=== PATIENT | male | born 1945 | race Caucasian/White ===

== ENCOUNTER 2018-03-28 13:22 | Day surgery (SDC) | payer MEDICARE, BC ==
[2018-03-26 09:37] VITALS: BMI 27.2
[~2018-03-28 13:22] MED LIST: DEXAMETHASONE SOD PHOSPHATE 10 MG/ML 1 ML VIAL IV ONE; DEXAMETHASONE SOD PHOSPHATE 4 MG/ML 1 ML VIAL IV ONE; FAMOTIDINE 20 MG/2 ML VIAL IV ONE; LACTATED RINGERS 1,000 ML IV SCH; LIDOCAINE 1% 20 ML VIAL (10MG/ML) FOR IV START INTRADERMA PRN; MELOXICAM 7.5 MG TAB PO ONE; MORPHINE SULFATE 4 MG/ML SYRINGE IV PRN; ONDANSETRON 4 MG/2 ML VIAL IVP ONE; ceFAZolin IN SWFI 2 GM/20 ML SYRINGE IVP ONE
[2018-03-28] MEDS ORDERED: MIDAZOLAM 2 MG/2 ML VIAL ONE (15:38)
[2018-03-28] MEDS ORDERED: fentaNYL (PF) 50 MCG/ML 2 ML AMP ONE (15:38)
[2018-03-28] MEDS ORDERED: ePHEDrine SULFATE/0.9% NACL/PF 50 MG/5 ML SYRINGE IV ONE (15:38)
[2018-03-28] MEDS ORDERED: LIDOCAINE 1% INJ 10MG/ML (20 ML MDV) ONE (15:38)
[2018-03-28] MEDS ORDERED: PHENYLEPHRINE-0.9% NACL SYG 1 MG/10 ML SYRINGE ONE (15:38)
[2018-03-28] MEDS ORDERED: SUCCINYLCHOLINE CHLORIDE 100 MG/5 ML SYR IV ONE (15:38)
[2018-03-28] MEDS ORDERED: PROPOFOL 10 MG/ML 20 ML VIAL IV ONE (15:38)
[2018-03-28 16:56] VITALS: TEMP 96.8
--- NOTE | 2018-03-28 17:01 | P.OP ---
Date of Procedure: 03/28/18 Preoperative Diagnosis: 1.6 cm right forehead mass Postoperative Diagnosis: same Procedure(s) Performed: Excision of a 1.6 cm right forehead mass with complex closure with a secondary defect 3.6x1.5 cm and the use of a facial nerve stimulator for preservation of the facial nerve. Anesthesia: HORTENSIAA Surgeon: Tree Galvan Estimated Blood Loss (ml): 2 Pathology: other (left forehead mass) Condition: stable Disposition: PACU Indications for Procedure: This patient developed a mass of the left forehead. This bothersome to him and he elected to have this removed. All risks, benefits, and alternative therapies were discussed. Consent was obtained and all questions were answered. Risks of bleeding, infection, facial paralysis etc. etc. were explained. Consent was obtained and all questions were answered. Operative Findings: 1.6 cm left forehead mass Description of Procedure: Patient was taken to the operative room and placed in the supine position. A general inhalation anesthetic was administered to the patient by mask and subsequently intubated with a cuffed endotracheal tube by the department of anesthesia with a functioning IV line in place. Patient was monitored throughout the entire case by the department of anesthesia. An draped in usual fashion and a horizontal incision was made overlying this mass. Dissection was carried down through the frontalis muscle to this mass utilizing a facial nerve stimulator to prevent any damage to a cranial nerve. Branches of the facial nerve were identified. Dissected away from the mass and the mass was removed which measured 1.6 cm. We then closed this in a complex fashion after extensive undermining in all directions. We removed redundant tissue along the edges and did extensive undermining. The secondary defect measured 3.6 x 1.5 cm. We closed the frontalis muscle with a 4-0 Monocryl the deep dermal layer with 4-0 Monocryl the dermal layer with 4-0 Monocryl and the skin with a 5-0 Prolene. Compression dressing and Steri-Strips were applied. The patient tolerated this well and follow-up will be in the office in 1 week.
[2018-03-28 17:04] VITALS: RESP 16
[2018-03-28] MEDS ORDERED: HYDROmorphone 0.5 MG/0.5 ML SYRINGE IVP ONE ×2 (17:21→17:30)
[2018-03-28] MEDS ORDERED: HYDROcodone/APAP 5-325MG 1 EACH TAB PO ONE (17:50)
[2018-03-28 18:15] VITALS: BP 165/66; PULSE 100
== END 2018-03-28 18:33 | disposition home or self-care (01) ==
LOC: OR 13:22
PROVIDERS: ATTEND Otolaryngology
DX: L92.3 Foreign body granuloma of the skin and subcutaneous tissue (principal); Z18.33 Retained wood fragments; W45.8XXA Other foreign body or object entering through skin, initial encounter; I10 Essential (primary) hypertension; M19.90 Unspecified osteoarthritis, unspecified site; F32.9 Major depressive disorder, single episode, unspecified; L30.9 Dermatitis, unspecified; K21.9 Gastro-esophageal reflux disease without esophagitis; H91.90 Unspecified hearing loss, unspecified ear; E78.00 Pure hypercholesterolemia, unspecified; G40.909 Epilepsy, unspecified, not intractable, without status epilepticus; J32.9 Chronic sinusitis, unspecified; G47.33 Obstructive sleep apnea (adult) (pediatric); Z99.89 Dependence on other enabling machines and devices; Z79.1 Long term (current) use of non-steroidal anti-inflammatories (NSAID); Z79.891 Long term (current) use of opiate analgesic; Z79.899 Other long term (current) drug therapy; Z88.1 Allergy status to other antibiotic agents; J30.89 Other allergic rhinitis; J30.1 Allergic rhinitis due to pollen; Z91.018 Allergy to other foods; Z91.09 Other allergy status, other than to drugs and biological substances; Z87.891 Personal history of nicotine dependence
CPT/HCPCS: 88304; 88311; 11442; 13132; J2250; J1100; J2405; J2001; J3010; J2370; J0330; J2704; J1170; J0690

== ENCOUNTER → 2019-11-15 | Outpatient (CLI) | payer MEDICARE ==
--- NOTE | 2019-11-15 10:13 | MR ---
EXAMINATION TYPE: MR shoulder RT wo con DATE OF EXAM: 11/15/2019 COMPARISON: Outside radiographs 08/14/2019 HISTORY: 74-year-old male RIGHT SHOULDER PAIN TECHNIQUE: Multiplanar, multisequence imaging of the right shoulder is performed without contrast. FINDINGS: Long head biceps tendon appears intact and appropriately situated along the bicipital. Heterogeneity of the subscapularis tendon. There is partial tear of the inferior fibers and intrasubs tance change within the remainder of the insertion. Minimal majority of the tendon remains intact. Some attenuation of the distal clavicle, probable postsurgical partial resection. The distal clavicle mildly indents the myotendinous junction of the supraspinatus. Trace fluid within the subacromial/subdeltoid bursa. Diffuse heterogeneity of both supraspinatus and infraspinatus tendons with suture anchors from prior supraspinatus and infraspinatus tendon repairs. The anterior to mid supraspinatus tendon is attenuated with suggestion of a small articular sided tea r of the mid tendon fibers measuring 9 x 7 mm. Additional partial tear of the infraspinatus tendon measuring 10 x 8 mm. Extensive intrasubstance change Is present. No full-thickness or retracted tear is identified. Minimal fatty streaks throughout the rotator cuff musculature. There is linear signal extending into the substance of the superior labrum back to the inferior aspec t of the posterior labrum where a millimeter. Labral cyst is present. Glenohumeral joint is intact with mild diffuse cartilage thinning. No significant joint effusion. No Hill-Sachs deformity or os acromiale. Patchy red marrow is present and can be seen in setting of anemia, obesity, smoking, and chronic dise ase. IMPRESSION: 1. Prior supraspinatus and infraspinatus tendon repairs. There is extensive heterogeneity of the cuff suggesting a combination of tendinosis and postsurgical change. 2. Small articular sided tear measuring 9 x 7 mm along the mid supraspinatus tendon and partial tear of the infraspinatus tendon measuring 10 x 8 mm. No retracted or full thickness tear identified. 3. Subscapularis tendinosis with partial tear of the inferior third fibers. The majority of the subsc apularis tendon remains intact. 4. Suspected prior partial distal clavicle resection. The distal clavicle mildly indents the superior surface of the supraspinatus tendon. This may contribute to some residual impingement symptoms. 5. SLAP tear extending from the superior labrum down to the inferior aspect of the posterior labrum.
== END | disposition home or self-care (01) ==
LOC: RADMRIMAIN 07:49
PROVIDERS: ATTEND Orthopaedic Surgery
DX: M75.111 Incomplete rotator cuff tear or rupture of right shoulder, not specified as traumatic (principal); S43.432A Superior glenoid labrum lesion of left shoulder, initial encounter

== ENCOUNTER → 2019-11-26 | Outpatient (CLI) | payer MEDICARE ==
[2019-11-26 14:14] LABS: Basophils # (A) 0.1 k/uL (0-0.2); Basophils % (A) 1 %; Eosinophils # (A) 0.6 k/uL (0-0.7); Eosinophils % (A) 8 %; HGB 14.2 gm/dL (13.0-17.5); Lymphocytes # (A) 1.8 k/uL (1.0-4.8); Lymphocytes % (A) 25 %; MCH 31.1 pg (25.0-35.0); MCHC 32.2 g/dL (31.0-37.0); MCV 96.7 fL (80.0-100.0); Mean Platelet Volume 7.6; Monocytes # (A) 0.4 k/uL (0-1.0); Monocytes % (A) 5 %; Neutrophils # (A) 4.3 k/uL (1.3-7.7); Neutrophils % (A) 59 %; Platelet Count 223 k/uL (150-450); RBC 4.55 m/uL (4.30-5.90); RDW 13.1 % (11.5-15.5); WBC 7.2 k/uL (3.8-10.6)
[2019-11-26 14:22] LABS: Potassium 4.2 mmol/L (3.5-5.1)
== END | disposition home or self-care (01) ==
LOC: LABPAT 13:13
PROVIDERS: ATTEND Orthopaedic Surgery
DX: Z01.818 Encounter for other preprocedural examination (principal); Z01.812 Encounter for preprocedural laboratory examination; M75.41 Impingement syndrome of right shoulder
CPT/HCPCS: 36415; 80051; 85025; 93005

== ENCOUNTER 2019-12-05 06:25 | Day surgery (SDC) | payer MEDICARE ==
[2019-12-02 15:43] VITALS: BMI 29.0
--- NOTE | 2019-12-04 09:35 | HP ---
HISTORY AND PHYSICAL CHIEF COMPLAINT: Right shoulder pain. HISTORY OF PRESENT ILLNESS: The patient is a 74-year-old, right-hand dominant, retired gentleman who presents with progressive right shoulder pain for the past 6 months. He is having pain with overhead use and at night. He has tried medications, therapy, and injections without much relief. He notes the pain persists and limits him. PAST MEDICAL HISTORY: Significant for reflux disease and hypertension. PAST SURGICAL HISTORY: Significant for previous right and left rotator cuff repairs. CURRENT MEDICATIONS: 1. Amitriptyline. 2. Atorvastatin. 3. Klonopin. 4. Lexapro. 5. Lisinopril. 6. Omeprazole. 7. Trileptal. ALLERGIES: He denies drug allergies. FAMILY HISTORY: Significant for heart disease and cancer. SOCIAL HISTORY: Negative for current tobacco or alcohol use. REVIEW OF SYSTEMS: Sixteen-point review of systems otherwise reviewed and is noncontributory. PHYSICAL EXAMINATION: On examination, the patient is approximately 5 feet 6 inches, 178 pounds of mesomorphic habitus. HEENT: Exam is nonfocal. Neck is supple. On examination of the right shoulder, he is tender about the anterior subacromial space. He has moderate subacromial crepitus. Active range of motion forward elevation 140 degrees, external rotation with arm at side 50 degrees, internal rotation to L2. Motor strength is 5 minus over 5 for abduction and external rotation. Impingement test, Neer test are positive. His distal neurovascular exam appears intact in the right upper extremity. MRI report right shoulder from 11/15/2019 shows increased signal involving the supraspinatus with likely articular sided tear and partial tearing of the infraspinatus. There is also question of a superior labral tear. IMPRESSION: 1. Right shoulder impingement syndrome with recurrent rotator cuff tear. 2. Right shoulder possible superior labral tear. RECOMMENDATIONS: I talked to the patient at length regarding his condition and treatment options. At this point, he remains quite symptomatic despite conservative measures. After thorough discussion, he opts to proceed with surgery. We will plan to proceed with arthroscopic evaluation with possible revision rotator cuff repair in addition to possible biceps tenotomy. Risks and benefits were discussed at length in layman's terms. MMODL / IJN: [id number] /
[~2019-12-05 06:25] MED LIST changes: -DEXAMETHASONE SOD PHOSPHATE 4 MG/ML 1 ML VIAL IV ONE; -FAMOTIDINE 20 MG/2 ML VIAL IV ONE; +HYDROmorphone 0.5 MG/0.5 ML SYRINGE IVP PRN; +LIDOCAINE 1% (10MG/ML) FOR IV START INTRADERMA PRN; -LIDOCAINE 1% 20 ML VIAL (10MG/ML) FOR IV START INTRADERMA PRN; -MELOXICAM 7.5 MG TAB PO ONE; -MORPHINE SULFATE 4 MG/ML SYRINGE IV PRN; -ceFAZolin IN SWFI 2 GM/20 ML SYRINGE IVP ONE
[2019-12-05] MEDS ORDERED: MIDAZOLAM 2 MG/2 ML VIAL IVP ONE ×2 (07:19→07:22)
[2019-12-05] MEDS ORDERED: DEXAMETHASONE SOD PHOS (MDV) 100 MG/10 ML VIAL IVP ONE (07:30)
[2019-12-05] MEDS ORDERED: ONDANSETRON 4 MG/2 ML VIAL IVP ONE (07:30)
[2019-12-05 07:45] VITALS: RESP 16
[2019-12-05] MEDS ORDERED: LACTATED RINGERS 1,000 ML IV ONE ×2 (07:47→08:48)
[2019-12-05] MEDS ORDERED: LIDOCAINE 1% INJ 10MG/ML (20 ML MDV) ONE (07:54)
[2019-12-05] MEDS ORDERED: SUCCINYLCHOLINE CHLORIDE 100 MG/5 ML SYR IV ONE (07:54)
[2019-12-05] MEDS ORDERED: ROPIVACAINE 5 MG/ML 30 ML VIAL ONE (07:54)
[2019-12-05] MEDS ORDERED: PHENYLEPHRINE-0.9% NACL SYG 1 MG/10 ML SYRINGE ONE (07:54)
[2019-12-05] MEDS ORDERED: DEXAMETHASONE SOD PHOSPHATE 4 MG/ML 1 ML VIAL ONE (07:54)
[2019-12-05] MEDS ORDERED: ePHEDrine SULFATE/0.9% NACL/PF 50 MG/5 ML SYRINGE IV ONE (07:54)
[2019-12-05] MEDS ORDERED: PROPOFOL 10 MG/ML 20 ML VIAL IV ONE (07:54)
[2019-12-05] MEDS ORDERED: EPINEPHrine (PF) 1 ML in SODIUM CHLORIDE 0.9% IRRIGATIO 3,000 ML IRRIGATION ONE ×8 (08:34→08:35)
[2019-12-05 09:28] VITALS: TEMP 97.1
--- NOTE | 2019-12-05 09:40 | P.OP ---
Date of Procedure: 12/05/19 Preoperative Diagnosis: Symptomatic right rotator cuff re-tear Postoperative Diagnosis: 1 1/2 cm tear of the supraspinatus, high-grade partial-thickness tear intra- articular portion long head of biceps, anterior labral tear Procedure(s) Performed: Right shoulder arthroscopic subacromial decompression/revision, rotator cuff repair, biceps tenotomy, anterior labral debridement Implants: Arthrex 5.5 mm swivel lock anchor 2 Anesthesia: JESUS, regional Surgeon: Willie Smith Watch And Clock Repairer #1: Brown Linton Estimated Blood Loss (ml): 10 Pathology: none sent Condition: stable Disposition: PACU Indications for Procedure: The patient is a 74-year-old glnra-xpan-mbvalfqu retired male who presents with progressive right shoulder pain despite conservative measures. A discussion of the risks and benefits of operative intervention versus continued conservative measures was made with patient. He opted to proceed with surgery. Operative risks to include infection, neurovascular injury, development of blood clots, possible incomplete resolution of symptoms, possible worsening of symptoms and need for subsequent procedures was discussed. Informed consent was obtained. Operative Findings: As below Description of Procedure: The patient was brought to the operating room, and after induction of general anesthesia was placed in a beachchair position. A preoperative interscalene block was placed for postoperative analgesia. I examined the right shoulder. There was no gross block to passive motion or gross glenohumeral instability. The right upper extremity was prepped and draped in normal fashion. The bony outlines the acromion, distal clavicle, and coracoid process were outlined with a skin marker. The glenohumeral joint was inflated with 50 mL of saline utili zing a spinal needle from posterior approach. A posterior portal was made through a 5 mm skin incision 1 cm medial and inferior to the posterior lateral border time. A blunt trocar was used to easily into the joint. Diagnostic arthroscopy was performed. An anterior portal was made just lateral to the coracoid process entering the joint above the subscapularis tendon. The subscapularis tendon appeared to be intact. Anterior labrum was frayed and torn along its superior aspect. This was debrided back to a stable base with a motorized shaver. The inferior glenohumeral ligament appeared intact. The inferior recess was inspected. The posterior labrum was intact. There was a high-grade partial-thickness tear of the long head of the biceps involving interarticular portion. It was elected to proceed with release at this point. This was released from the superior labrum with electrocautery and was allowed to retract to the bicipital groove. On inspection the rotator cuff, a full- thickness tear involving the anterior aspect the supraspinatus was noted. This was debrided with a motorized shaver. The posterior portion of the cuff appeared intact. A lateral portal was made 2 centimeters inferior to the anterior lateral border of the acromion. The rotator cuff tear was easily mobilized back to the greater tuberosity there was significant subacromial bursal thickening that was debrided with a motorized shaver. The soft tissue on the undersurface of the acromion was debrided with a motorized shaver and electrocautery clearly defining the anterior medial and lateral borders as well as the distal clavicle. A revision anterior inferior acromioplasty was performed with a motorized paradise starting anterolateral, then extending this posteriorly, then extending this medially. I converted to a flat acromion and this was verified in the posterior and lateral viewing portals. The greater tuberosity was lightly decorticating with a shaver down to a bleeding bony surface. An accessory superior lateral portal was made just off the lateral edge of the acromion for anchor placement. One anchor was then placed just off the articular surface with the appropriate starting awl. 5.5 mm anchors preloaded with #2 fiber tape were placed. Good purchase was obtained. These fiber tapes were then passed the rotator cuff with a scorpion suture passer. A fiber link was placed into the central portion of the tear. A 5.5 mm swivel lock anchor was placed laterally. Good purchase was obtained. Final arthroscopic view showed adequate compression at the footprint. The arthroscope was then removed. The portals were closed with simple 3-0 nylon sutures. A sterile dressing was applied in addition to a sling. The patient was then awoken from general anesthesia and transferred to recovery room in good condition. Blood loss was estimated at 10 mL. No complications were incurred. Sponge and needle counts were correct in the case. Yash AMIN assisted and the major components of the case to include arm positioning, anchor placement, and rotator cuff repair.
[2019-12-05 10:51] VITALS: BP 136/74; PULSE 99
--- NOTE | 2019-12-06 16:00 | P.ANPRN ---
Procedure Note - Anesthesia - Nerve Block Performed Right Interscalene Single Time Out Performed: Yes Date of Procedure: 12/06/19 Procedure Start Time: : Procedure Stop Time: : Location of Patient: PreOp Indication: Acute Post-Operative Pain, Requested by Surgeon Sedation Type: Sedate with meaningful contact maintained Preparation: Sterile Prep Position: Supine Needle Types: Pajunk Needle Gauge: 21 Ultrasound used to visualize needle placement: Yes Ultrasound used to observe medication spread: Yes Blood Aspirated: No Pain Paresthesia on Injection Noted: No Resistance on Injection: Normal Image Stored and Saved: Yes Events: Uneventful and Well Tolerated (Ropivacaine 0.5% 30 mL plus dexamethasone 4 mg)
== END 2019-12-05 11:10 | disposition home or self-care (01) ==
LOC: OR 06:25
PROVIDERS: ATTEND Orthopaedic Surgery
DX: M75.121 Complete rotator cuff tear or rupture of right shoulder, not specified as traumatic (principal); M75.41 Impingement syndrome of right shoulder; M24.111 Other articular cartilage disorders, right shoulder; M75.21 Bicipital tendinitis, right shoulder; I10 Essential (primary) hypertension; K21.9 Gastro-esophageal reflux disease without esophagitis; Z79.899 Other long term (current) drug therapy; E78.5 Hyperlipidemia, unspecified; G47.33 Obstructive sleep apnea (adult) (pediatric); F32.9 Major depressive disorder, single episode, unspecified; Z98.890 Other specified postprocedural states; Z82.49 Family history of ischemic heart disease and other diseases of the circulatory system
CPT/HCPCS: 29827; 29826; 64415; 76942; C1713 ×2; C1894; J2250; J1100 ×2; J0690; J2405; J0171; J2001; J2795; J2370; J0330; J2704; 64448

== ENCOUNTER → 2020-08-13 | Outpatient (CLI) | payer MEDICARE ==
[2020-08-13 11:16] LABS: Potassium 4.5 mmol/L (3.5-5.1)
[2020-08-13 11:17] LABS: Basophils % (A) 0 %; Eosinophils # (A) 0.8 k/uL (0-0.7); Eosinophils % (A) 12 %; HCT 43.6 % (39.0-53.0); HGB 13.6 gm/dL (13.0-17.5); Lymphocytes # (A) 2.1 k/uL (1.0-4.8); Lymphocytes % (A) 31 %; MCH 29.6 pg (25.0-35.0); MCHC 31.3 g/dL (31.0-37.0); MCV 94.5 fL (80.0-100.0); Mean Platelet Volume 6.9; Monocytes # (A) 0.4 k/uL (0-1.0); Monocytes % (A) 6 %; Neutrophils # (A) 3.3 k/uL (1.3-7.7); Neutrophils % (A) 49 %; Platelet Count 239 k/uL (150-450); RBC 4.61 m/uL (4.30-5.90); WBC 6.8 k/uL (3.8-10.6)
== END | disposition home or self-care (01) ==
LOC: LABPAT 09:32
PROVIDERS: ATTEND Orthopaedic Surgery
DX: Z01.818 Encounter for other preprocedural examination (principal); M65.342 Trigger finger, left ring finger
CPT/HCPCS: 80051; 85025

== ENCOUNTER → 2020-08-20 | Day surgery (SDC) | payer MEDICARE ==
--- NOTE | 2020-08-19 09:57 | HP ---
HISTORY AND PHYSICAL CHIEF COMPLAINT: Left ring finger pain/locking. HISTORY OF PRESENT ILLNESS: Patient is a 74-year-old, right-hand dominant, retired gentleman who presents with left ring finger triggering and pain for the past couple of weeks. It is worse in the morning. He notes it has progressed. He has a history of multiple other trigger fingers treated surgically. PAST MEDICAL HISTORY: Significant for reflux disease and hypertension. PAST SURGICAL HISTORY: Significant for foot surgery, bilateral shoulder surgery, multiple previous trigger finger release, and abdominoplasty. CURRENT MEDICATIONS: Amitriptyline, atorvastatin, Klonopin, Lexapro, lisinopril, melatonin, omeprazole, and Trileptal. He denies drug allergies. FAMILY HISTORY: Significant for cancer and heart disease. SOCIAL HISTORY: Significant for social alcohol use. 16 POINT REVIEW OF SYSTEMS: Otherwise reviewed and is noncontributory. PHYSICAL EXAMINATION: On examination, the patient is approximately 5 foot 6, 178 pounds of mesomorphic habitus. HEENT exam is nonfocal. Neck is supple. He is nontender about the left shoulder, elbow, and wrist. On examination of his left hand, he is tender over the A1 artem of the ring finger. He has palpable triggering. His distal neurovascular appears intact. IMPRESSION: Symptomatic right ring trigger finger. RECOMMENDATIONS: I talked to the patient at length regarding his condition and treatment options. After a thorough discussion, he opts to proceed with surgery. We will plan to proceed with left ring trigger finger release. We will likely perform that utilizing local anesthetic and IV sedation. Risks and benefits were discussed at length in layman's terms. MMODL / IJN: [id number] /
[~2020-08-20] MED LIST changes: +BUPIVACAINE (PF) 0.25% 30 ML VIAL SQ ONE; +MIDAZOLAM 2 MG/2 ML VIAL ONE; +PROPOFOL 10 MG/ML 20 ML VIAL IV ONE; +fentaNYL (PF) 50 MCG/ML 2 ML AMP ONE
[2020-08-20 07:21] VITALS: RESP 16; TEMP 97.6
--- NOTE | 2020-08-20 08:26 | P.OP ---
Date of Procedure: 08/20/20 Preoperative Diagnosis: Symptomatic left ring trigger finger Postoperative Diagnosis: Same Procedure(s) Performed: Left trigger finger release Anesthesia: MAC, local Surgeon: Willie Smith Estimated Blood Loss (ml): 1 Pathology: none sent Condition: stable Disposition: PACU Indications for Procedure: The patient's a 74-year-old male presents with progressive left ring finger pain and locking. A discussion of the risks and benefits of operative intervention versus conservative measures was made with patient. He opted to proceed with surgery. Operative risks to include infection, neurovascular injury, development of blood clots, possible recurrence of symptoms and need for subsequent procedures was discussed. Informed consent was obtained. Operative Findings: As below Description of Procedure: The patient was brought to the operating room, and after induction of IV sedation left upper extremity was prepped and draped in normal fashion. The proposed incision site was then made just distal to the distal volar crease of the left hand over the ring finger. I planned on a 1/2 cm incision. 8 mL of quarter percent plain Marcaine was injected. The tourniquet was inflated to 250 mmHg. The skin incision was then made. Skin was incised sharply. Subcu tissues were divided blood. Neurovascular bundles were gently retracted. The A1 artem was identified along the flexor tendon. This was then transected unde r direct visualization proximal and distally. There was nodularity of the flexor tendon itself. There appeared to be good excursion. The wound was irrigated normal saline. The skin closure box and simple 4-0 nylon sutures. A sterile dressing was applied. The tourniquet was deflated less than 15 minutes total tourniquet time. The patient was awoken from sedation and transferred to recovery room in good condition. Blood loss less than 1 mL. No complications were incurred. Sponge and needle counts were correct at the end the case.
[2020-08-20 08:55] VITALS: BP 120/66; PULSE 78
--- NOTE | 2020-08-24 13:10 | CDI ---
Outpatient Documentation Clarification Form Date: 08/24/20 CDS/Supervisor Ovens Name: Stephanie Esposito Phone: If any questions, call Lazara Kulkarni Vice President Investor Relations at [phone] Patient Name: Indra Koehler Admit Date: 08/20/20 Discharge Date: 08/20/20 ATTENTION: The [facility] Coding Staff appreciate your assistance in clarifying documentation. Please respond to the clarification below the line at the bottom and electronically sign. The [facility] Coding staff will review the response and follow-up if needed. Please note: Queries are made part of the Legal Health Record. If you have any questions, please contact the Vice President Investor Relations. Dear Dr. Smith Please provide clarification for the laterality of the procedure performed. All documentation specifies left trigger finger. On the H&P under impression it is specified right trigger finger. Please clarify It was a left ring trigger finger release. Thank you for your kind consideration. MTDD
== END | disposition home or self-care (01) ==
LOC: OR 06:58
PROVIDERS: ATTEND Orthopaedic Surgery
DX: M65.342 Trigger finger, left ring finger (principal); K21.9 Gastro-esophageal reflux disease without esophagitis; I10 Essential (primary) hypertension; E78.5 Hyperlipidemia, unspecified; G47.33 Obstructive sleep apnea (adult) (pediatric); Z99.89 Dependence on other enabling machines and devices; G40.909 Epilepsy, unspecified, not intractable, without status epilepticus; Z98.890 Other specified postprocedural states; Z80.9 Family history of malignant neoplasm, unspecified; Z82.49 Family history of ischemic heart disease and other diseases of the circulatory system; Z97.2 Presence of dental prosthetic device (complete) (partial); Z79.899 Other long term (current) drug therapy
CPT/HCPCS: 26055; J2250; J1100; J0690; J2405; J3010; J2704

== ENCOUNTER 2021-01-03 14:45 | Emergency (ER) | payer MEDICARE ==
[2021-01-03 14:57] VITALS: RESP 16
[2021-01-03 15:20] VITALS: TEMP 98
[2021-01-03] MEDS ORDERED: SODIUM CHLORIDE 0.9% 1,000 ML IV STA (15:27)
--- NOTE | 2021-01-03 15:30 | ED ---
General Adult HPI - General Chief complaint: Syncope Stated complaint: Syncope Time Seen by Provider: 01/03/21 15:14 Source: patient, EMS, RN notes reviewed Mode of arrival: EMS Limitations: no limitations - History of Present Illness Initial comments: Patient is a pleasant 75-year-old male presenting to the emergency department following syncopal versus near syncopal event. Patient does not believe she fully passed out. Patient states he was going to have a tooth extracted. Patient states he did receive an injection. Following this patient started pulling on the area and there was significant discomfort. The episode occurred. Patient states he feels fine at this time. Patient was nauseated earlier. No chest pain or dyspnea. No leg pain or leg swelling. No confusion. No isolated area of weakness. - Related Data Home Medications Medication Instructions Recorded Confirmed Atorvastatin [Lipitor] 80 mg PO HS 08/03/16 01/03/21 Escitalopram [Lexapro] 20 mg PO DAILY 08/03/16 01/03/21 Amitriptyline HCl [Elavil] 25 mg PO HS 09/07/17 01/03/21 Lisinopril [Prinivil] 10 mg PO DAILY 09/07/17 01/03/21 Omeprazole [PriLOSEC] 20 mg PO DAILY 09/07/17 01/03/21 clonazePAM [KlonoPIN] 1 mg PO BID 09/07/17 01/03/21 Diphenoxylate HCl/Atropine 1 tab PO BID 12/02/19 01/03/21 [Lomotil 2.5-0.025 mg Tablet] Melatonin 20 mg PO HS 12/02/19 01/03/21 OXcarbazepine [Trileptal] 300 mg PO BID 12/02/19 01/03/21 Cholecalciferol [Vitamin D3 (25 25 mcg PO DAILY 01/03/21 01/03/21 Mcg = 1000 Iu)] Allergies Allergy/AdvReac Type Severity Reaction Status Date / Time No Known Allergies Allergy Verified 01/03/21 16:46 Review of Systems ROS Statement: Those systems with pertinent positive or pertinent negative responses have been documented in the HPI. ROS Other: All systems not noted in ROS Statement are negative. Constitutional: Denies: fever Eyes: Denies: eye pain ENT: Denies: ear pain Respiratory: Denies: cough Cardiovascular: Denies: chest pain Endocrine: Denies: fatigue Gastrointestinal: Denies: abdominal pain Genitourinary: Denies: urgency Musculoskeletal: Denies: back pain Skin: Denies: rash Neurological: Denies: weakness Past Medical History Past Medical History: GERD/Reflux, Hearing Disorder / Deafness, Hyperlipidemia, Hypertension, Seizure Disorder, Sleep Apnea/CPAP/BIPAP Additional Past Medical History / Comment(s): Seizure disorder LAST 2013 History of Any Multi-Drug Resistant Organisms: None Reported Past Surgical History: Hernia Repair, Orthopedic Surgery Additional Past Surgical History / Comment(s): left and right shoulder surgery, 3 Inguinal hernia repairs, colonoscopy. LEFT MIDDLE FINGER, RIGHT RING FINGER Past Anesthesia/Blood Transfusion Reactions: No Reported Reaction Past Psychological History: Depression Smoking Status: Former smoker Past Alcohol Use History: Occasional Past Drug Use History: None Reported - Past Family History Mother Family Medical History: No Reported History Sister(s) Family Medical History: Cancer Additional Family Medical History / Comment(s): Stomach General Exam Limitations: no limitations General appearance: alert, in no apparent distress Head exam: Present: atraumatic, normocephalic Eye exam: Present: normal appearance, PERRL, EOMI ENT exam: Present: normal oropharynx Neck exam: Present: normal inspection Respiratory exam: Present: normal lung sounds bilaterally Cardiovascular Exam: Present: regular rate, normal rhythm, normal heart sounds Expanded Peripheral pulses: 2+: Radial (R), Radial (L), Posterior Tibialis (R), Posterior Tibialis (L) GI/Abdominal exam: Present: soft. Absent: distended, tenderness, pulsatile mass Extremities exam: Present: normal inspection. Absent: pedal edema, calf tenderness Neurological exam: Present: alert, oriented X3, CN II-XII intact. Absent: motor sensory deficit Expanded Neurological exam: Present: protecting the airway Patient oriented to: Present: person, place, time Speech: Present: fluid speech Cranial nerves: EOM's Intact: Normal Sensory exam: Upper Extremity Light Touch: Normal, Lower Extremity Light Touch: Normal Motor strength exam: RUE: 5, LUE: 5, RLE: 5, LLE: 5 Eye Response: (4) open spontaneously Motor Response: (6) obeys commands Verbal Response: (5) oriented Psychiatric exam: Present: normal affect, normal mood Skin exam: Present: normal color Course Vital Signs 01/03/21 14:55 Temperature 98.0 F Pulse Rate 70 Respiratory 16 Rate Blood Pressure 187/97 O2 Sat by Pulse 96 Oximetry EKG Findings - EKG Comments: EKG Findings:: Normal sinus rhythm at 70. HI 160. QRS 94. QT 406. QTc 4:30. Normal axis. Normal QRS. No acute ST change. Medical Decision Making - Medical Decision Making Patient has history consistent with vasovagal syncope. Patient evaluated and remained symptom-free. Patient comfort with discharge home. Patient does have history of seizure disorder however states he has not had one in for years and this does not feel typical to his previous seizures. - Lab Data Result diagrams: 01/03/21 15:33 01/03/21 15:33 Lab Results 01/03/21 01/03/21 01/03/21 Range/Units 15:33 15:33 15:33 WBC 9.5 (3.8-10.6) k/uL RBC 4.80 (4.30-5.90) m/uL Hgb 15.0 (13.0-17.5) gm/dL Hct 44.8 (39.0-53.0) % MCV 93.2 (80.0-100.0) fL MCH 31.2 (25.0-35.0) pg MCHC 33.4 (31.0-37.0) g/dL RDW 13.0 (11.5-15.5) % Plt Count 234 (150-450) k/uL MPV 7.4 Neutrophils % 71 % Lymphocytes % 19 % Monocytes % 5 % Eosinophils % 4 % Basophils % 0 % Neutrophils # 6.7 (1.3-7.7) k/uL Lymphocytes # 1.8 (1.0-4.8) k/uL Monocytes # 0.5 (0-1.0) k/uL Eosinophils # 0.4 (0-0.7) k/uL Basophils # 0.0 (0-0.2) k/uL PT 10.0 (9.0-12.0) sec INR 0.9 (<1.2) APTT 22.8 (22.0-30.0) sec D-Dimer 0.48 (<0.60) mg/L FEU Sodium 137 (137-145) mmol/L Potassium 4.8 (3.5-5.1) mmol/L Chloride 102 (98-107) mmol/L Carbon Dioxide 24 (22-30) mmol/L Anion Gap 11 mmol/L BUN 10 (9-20) mg/dL Creatinine 0.80 (0.66-1.25) mg/dL Est GFR (CKD-EPI)AfAm >90 (>60 ml/min/1.73 sqM) Est GFR (CKD-EPI)NonAf 89 (>60 ml/min/1.73 sqM) Glucose 121 H (74-99) mg/dL Calcium 9.1 (8.4-10.2) mg/dL Total Bilirubin 0.6 (0.2-1.3) mg/dL AST 31 (17-59) U/L ALT 22 (4-49) U/L Alkaline Phosphatase 122 (38-126) U/L Troponin I (0.000-0.034) ng/mL Total Protein 7.4 (6.3-8.2) g/dL Albumin 4.2 (3.5-5.0) g/dL 01/03/21 Range/Units 15:33 WBC (3.8-10.6) k/uL RBC (4.30-5.90) m/uL Hgb (13.0-17.5) gm/dL Hct (39.0-53.0) % MCV (80.0-100.0) fL MCH (25.0-35.0) pg MCHC (31.0-37.0) g/dL RDW (11.5-15.5) % Plt Count (150-450) k/uL MPV Neutrophils % % Lymphocytes % % Monocytes % % Eosinophils % % Basophils % % Neutrophils # (1.3-7.7) k/uL Lymphocytes # (1.0-4.8) k/uL Monocytes # (0-1.0) k/uL Eosinophils # (0-0.7) k/uL Basophils # (0-0.2) k/uL PT (9.0-12.0) sec INR (<1.2) APTT (22.0-30.0) sec D-Dimer (<0.60) mg/L FEU Sodium (137-145) mmol/L Potassium (3.5-5.1) mmol/L Chloride (98-107) mmol/L Carbon Dioxide (22-30) mmol/L Anion Gap mmol/L BUN (9-20) mg/dL Creatinine (0.66-1.25) mg/dL Est GFR (CKD-EPI)AfAm (>60 ml/min/1.73 sqM) Est GFR (CKD-EPI)NonAf (>60 ml/min/1.73 sqM) Glucose (74-99) mg/dL Calcium (8.4-10.2) mg/dL Total Bilirubin (0.2-1.3) mg/dL AST (17-59) U/L ALT (4-49) U/L Alkaline Phosphatase (38-126) U/L Troponin I <0.012 (0.000-0.034) ng/mL Total Protein (6.3-8.2) g/dL Albumin (3.5-5.0) g/dL - Radiology Data Radiology results: image reviewed (Chest x-ray shows no acute process) Disposition Clinical Impression: Vasovagal syncope Disposition: HOME SELF-CARE Condition: Stable Instructions (If sedation given, give patient instructions): Near Syncope (ED), Syncope (ED) Additional Instructions: Please do follow-up with your primary care physician in the next day or 2 for recheck. Return for chest pain or difficulty in breathing, weakness or confusion, passing out, worsening or change in symptoms or other concerns. Is patient prescribed a controlled substance at d/c from ED?: No Referrals: [facility],Clinic [Primary Care Provider] - 1-2 days Time of Disposition: 17:05
[2021-01-03] MEDS ORDERED: ACETAMINOPHEN TAB 500 MG TAB PO STA (15:35)
[2021-01-03 15:43] LABS: Basophils % (A) 0 %; Eosinophils # (A) 0.4 k/uL (0-0.7); Eosinophils % (A) 4 %; HCT 44.8 % (39.0-53.0); Lymphocytes # (A) 1.8 k/uL (1.0-4.8); Lymphocytes % (A) 19 %; MCH 31.2 pg (25.0-35.0); MCHC 33.4 g/dL (31.0-37.0); MCV 93.2 fL (80.0-100.0); Mean Platelet Volume 7.4; Monocytes # (A) 0.5 k/uL (0-1.0); Monocytes % (A) 5 %; Neutrophils # (A) 6.7 k/uL (1.3-7.7); Neutrophils % (A) 71 %; Platelet Count 234 k/uL (150-450); WBC 9.5 k/uL (3.8-10.6)
[2021-01-03 15:50] LABS: ALT 22 U/L (4-49); AST 31 U/L (17-59); African American GFR (CKD) >90 (>60 ml/min/1.73 sqM); Albumin 4.2 g/dL (3.5-5.0); Alkaline Phosphatase 122 U/L (38-126); Anion Gap 11 mmol/L; Blood Urea Nitrogen 10 mg/dL (9-20); Calcium 9.1 mg/dL (8.4-10.2); Carbon Dioxide 24 mmol/L (22-30); Chloride 102 mmol/L (98-107); Glucose 121 mg/dL (74-99); Non-African American GFR(CKD) 89 (>60 ml/min/1.73 sqM); Potassium 4.8 mmol/L (3.5-5.1); Sodium 137 mmol/L (137-145); Total Bilirubin 0.6 mg/dL (0.2-1.3); Total Protein 7.4 g/dL (6.3-8.2)
[2021-01-03 16:03] LABS: D-Dimer 0.48 mg/L FEU (<0.60); INR 0.9 (<1.2); Partial Thromboplastin Time 22.8 sec (22.0-30.0)
--- NOTE | 2021-01-03 16:32 | XR ---
EXAMINATION TYPE: XR chest 2V DATE OF EXAM: 01/03/2021 COMPARISON: None HISTORY: 75-year-old male with syncope and dizziness TECHNIQUE: AP and lateral views FINDINGS: The cardiomediastinal silhouette, aorta, and pulmonary vasculature are within normal limits. Lungs an d pleural spaces are clear. DISH WITHIN THE MID THORACIC SPINE. IMPRESSION: No acute cardiopulmonary process.
[2021-01-03 17:06] VITALS: BP 110/86; PULSE 97
== END 2021-01-03 17:14 | disposition home or self-care (01) ==
LOC: EC 14:45
DX: R55 Syncope and collapse (principal); R11.0 Nausea; F32.9 Major depressive disorder, single episode, unspecified; G40.909 Epilepsy, unspecified, not intractable, without status epilepticus; E78.5 Hyperlipidemia, unspecified; I10 Essential (primary) hypertension; G47.33 Obstructive sleep apnea (adult) (pediatric); Z79.899 Other long term (current) drug therapy; Z99.89 Dependence on other enabling machines and devices; Z87.891 Personal history of nicotine dependence
CPT/HCPCS: 36415; 71046; 80053; 84484; 85025; 85379; 85610; 85730; 93005; 96360; 96361; 99284

== ENCOUNTER → 2022-07-24 | Outpatient (CLI) | payer MEDICARE ==
[2022-07-24 18:09] LABS: HCT 40.1 % (39.6-50.0); HGB 13.3 g/dL (13.0-17.0); MCH 31.3 pg (27.0-32.0); MCHC 33.2 g/dL (32.0-37.0); MCV 94.4 fL (80.0-97.0); Mean Platelet Volume 9.4 fL (9.5-12.2); NRBC Per 100 WBC 0 /100 WBCS (0.0-0.0); Platelet Count 227 X 10*3/uL (140-440); RBC 4.25 X 10*6/uL (4.40-5.60); RDW 12.9 % (11.5-14.5); WBC 7.51 X 10*3/uL (4.50-10.00)
[2022-07-24 18:18] LABS: African American GFR (CKD) 97.2 (60.0-200.0); Anion Gap 8.6 mmol/L (10.00-18.00); Blood Urea Nitrogen 13.8 mg/dL (9.0-27.0); Carbon Dioxide 27.4 mmol/L (20.0-27.5); Non-African American GFR(CKD) 83.8 (60.0-200.0); Potassium 4.3 mmol/L (3.5-5.5)
== END | disposition home or self-care (01) ==
LOC: LABPAT 13:31
PROVIDERS: ATTEND Internal Medicine
DX: Z01.812 Encounter for preprocedural laboratory examination (principal); I25.10 Atherosclerotic heart disease of native coronary artery without angina pectoris; R06.02 Shortness of breath
CPT/HCPCS: 36415; 80051; 82565; 84520; 85027

== ENCOUNTER 2022-08-01 06:20 | Day surgery (SDC) | payer MEDICARE, OTHER ==
[2022-07-28 16:44] VITALS: BMI 27.9
[2022-08-01] MEDS ORDERED: ASPIRIN 325 MG TAB PO STA (06:27)
[2022-08-01] MEDS ORDERED: ALPRAZolam 0.5 MG TAB PO PRN (06:27)
[2022-08-01] MEDS ORDERED: HEPARIN SODIUM,PORCINE 10,000 UNIT in SODIUM CHLORIDE 0.9% 1,000 ML IRRIGATION PRN (06:27)
[2022-08-01] MEDS ORDERED: ATORVASTATIN 80 MG TAB PO STA (06:27)
[2022-08-01] MEDS ORDERED: NITROGLYCERIN SL TABS 0.4 MG TAB SUBLINGUAL PRN (06:27)
[2022-08-01] MEDS ORDERED: HEPARIN SODIUM,PORCINE 2,500 UNIT in SODIUM CHLORIDE 0.9% 250 ML IRRIGATION PRN (06:27)
[2022-08-01] MEDS ORDERED: ALPRAZolam 0.25 MG TAB PO PRN (06:27)
[2022-08-01 06:51] VITALS: RESP 18; TEMP 97.8
[2022-08-01] MEDS ORDERED: VERAPAMIL 2.5 MG/ML 2 ML AMP ONE (07:10)
[2022-08-01] MEDS ORDERED: HEPARIN SODIUM 1,000 UN/ML (10ML VL) ONE (07:10)
[2022-08-01] MEDS ORDERED: fentaNYL (PF) 50 MCG/ML 2 ML AMP ONE (07:24)
[2022-08-01] MEDS ORDERED: SODIUM CHLORIDE 0.9% 1,000 ML in EMPTY BAG 1 BAG IV SCH (07:30)
[2022-08-01] MEDS ORDERED: fentaNYL (PF) 50 MCG/ML 2 ML AMP IVP ONE (07:36)
[2022-08-01] MEDS ORDERED: MIDAZOLAM 2 MG/2 ML VIAL IVP ONE (07:36)
[2022-08-01] MEDS ORDERED: LIDOCAINE 1% INJ 10MG/ML (30 ML VIAL-PF) SQ ONE (07:37)
[2022-08-01] MEDS ORDERED: VERAPAMIL SYRINGE (5 MG/10 ML) INTRAARTER ONE ×2 (07:39→07:43)
[2022-08-01] MEDS ORDERED: HEPARIN SODIUM 1,000 UN/ML (10ML VL) IVP ONE (07:48)
[2022-08-01] MEDS ORDERED: IOPAMIDOL-370 125ML BTL INJ ONE (08:00)
--- NOTE | 2022-08-01 08:07 | P.CARDCATH ---
Description of Procedure: PROCEDURES PERFORMED: Left heart catheterization, bilateral coronary angiography INDICATION: Abnormal stress test CONSENT:I have discussed the risks, benefits and alternative therapies for the above-mentioned procedure and for both sedation/analgesia as well as necessary blood product administration, if indicated, as they pertain to this patient. The patient has indicated understanding and acceptance of the risks and procedures discussed. PROCEDURE: After the risks, benefits and alternatives of the above mentioned procedure explained in detail with the patient, informed consent was obtained. Patient was taken to the catheterization lab and prepped and draped in usual fashion. 1% lidocaine was used to anesthetize the right radial artery. A 6- Cambodian sheath was placed in the right radial artery using modified Seldinger technique. Left coronary angiography was performed with a 5-Cambodian JL 3.5 catheter and right coronary angiography was performed with a 5-Cambodian JR5 catheter in various views. A 5-Cambodian FR5 catheter was inserted into the left ventricle and pressure measurements were obtained. The right radial sheath was removed and a TR band was placed with hemostasis achieved. The patient tolerated the procedure well. Patient was transported back to the post catheterization holding area in stable condition. Conscious Sedation: Patient was monitored under the direct supervision of vision of myself for conscious sedation using Versed and fentanyl for a total duration of 27 minutes HEMODYNAMICS: Aorta: 141/68 LV: 133/11, LVEDP 21 SELECTIVE CORONARY ARTERIOGRAPHY: LEFT MAIN: The left main is a large caliber vessel which bifurcates into the LAD and circumflex. There is no significant stenosis. LEFT ANTERIOR DESCENDING CORONARY ARTERY: LAD is a large caliber vessel which wraps around to the apex. There is no significant stenosis. LEFT CIRCUMFLEX CORONARY ARTERY: Left circumflex is a moderate caliber vessel with an ostial circumflex 30% stenosis RIGHT CORONARY ARTERY: The right coronary artery is a moderate caliber vessel which gives off a PDA and PLV branch and is the dominant vessel. There is no significant stenosis. FINAL IMPRESSION: 1. Relatively normal coronary arteries other than a ostial circumflex 30% stenosis 2. Elevated left sided filling pressures PLAN: 1. Aggressive risk factor modification per most recent ACC/AHA guidelines. 2. Trial of diuretics for elevated LVEDP and dyspnea. Follow-up in office in 1 week.
[2022-08-01 11:32] VITALS: BP 158/64; PULSE 64
== END 2022-08-01 12:13 | disposition home or self-care (01) ==
LOC: CATHCVL 06:20
PROVIDERS: ATTEND Internal Medicine
DX: I25.10 Atherosclerotic heart disease of native coronary artery without angina pectoris (principal); I10 Essential (primary) hypertension; R94.39 Abnormal result of other cardiovascular function study; E78.5 Hyperlipidemia, unspecified; G40.909 Epilepsy, unspecified, not intractable, without status epilepticus; Z20.822 Contact with and (suspected) exposure to COVID-19; Z82.49 Family history of ischemic heart disease and other diseases of the circulatory system; Z72.0 Tobacco use; Z79.82 Long term (current) use of aspirin; Z79.899 Other long term (current) drug therapy
CPT/HCPCS: 93458; 87635; C1769 ×3; C1894; J2250; J2001; J3010; J1644; Q9967

== ENCOUNTER 2022-10-16 07:06 | Observation (INO) | payer OTHER, MEDICARE ==
--- NOTE | 2022-10-16 07:35 | XR ---
EXAMINATION TYPE: XR chest 2V DATE OF EXAM: 10/16/2022 COMPARISON: 01/03/2021 HISTORY: Shortness of breath TECHNIQUE: Frontal and lateral views of the chest are obtained. FINDINGS: Scattered senescent parenchymal changes noted. Hyperinflation compatible with COPD. No evidence for infiltrate. No evidence for atelectasis. Heart size is stable. Mediastinal structures are stable and grossly unremarkable. No evidence for hilar prominence. Degenerative changes dorsal spine. IMPRESSION: 1. No evidence for acute pulmonary disease.
[2022-10-16 07:40] LABS: Basophils % (A) 0 %; Eosinophils # (A) 0.9 k/uL (0-0.7); Eosinophils % (A) 10 %; HCT 42.5 % (39.0-53.0); HGB 14.3 gm/dL (13.0-17.5); Lymphocytes # (A) 2.3 k/uL (1.0-4.8); Lymphocytes % (A) 26 %; MCH 31.6 pg (25.0-35.0); MCHC 33.7 g/dL (31.0-37.0); MCV 93.9 fL (80.0-100.0); Mean Platelet Volume 8.3; Monocytes # (A) 0.5 k/uL (0-1.0); Monocytes % (A) 5 %; Neutrophils # (A) 5.2 k/uL (1.3-7.7); Neutrophils % (A) 56 %; Platelet Count 246 k/uL (150-450); RBC 4.53 m/uL (4.30-5.90); WBC 9.1 k/uL (3.8-10.6)
--- NOTE | 2022-10-16 07:45 | ED ---
Chest Pain HPI - General Chief Complaint: Chest Pain Stated Complaint: Chest Pain Time Seen by Provider: 10/16/22 07:08 Source: patient, EMS, RN notes reviewed Mode of arrival: EMS Limitations: no limitations - History of Present Illness Initial Comments: 77-year-old male presents emergency Department with chief complaint of chest pain. Patient states started 1 hour prior arrival. Patient states the pain is left-sided chest pain. Patient states that pain was more sharp in nature patient denies any fevers chills cough or click symptoms. Patient states that his been having issues of chest pain does have a history of hyperlipidemia hypertension on current medications. Patient was given aspirin prior arrival he states his pain is improving at this time. Denies any leg swelling, leg pain. - Related Data Home Medications Medication Instructions Recorded Confirmed Atorvastatin [Lipitor] 80 mg PO HS 08/03/16 08/01/22 Escitalopram [Lexapro] 20 mg PO DAILY 08/03/16 07/28/22 Amitriptyline HCl [Elavil] 25 mg PO HS 09/07/17 08/01/22 Omeprazole [PriLOSEC] 20 mg PO DAILY 09/07/17 07/28/22 clonazePAM [KlonoPIN] 2 mg PO HS 09/07/17 08/01/22 lisinopriL [Prinivil] 10 mg PO DAILY 09/07/17 07/28/22 Melatonin [Melatonin ER] 20 mg PO HS 12/02/19 08/01/22 Aspirin 81 mg PO DAILY 07/28/22 08/01/22 Cyanocobalamin (Vitamin B-12) 2,500 mcg PO DAILY 07/28/22 07/28/22 [Vitamin B-12] Diphenox-Atrop 2.5-0.025 mg 1 tab PO BID 07/28/22 07/28/22 [Lomotil] Ibguard Supplement 1 tab PO BID 07/28/22 Metoprolol Succinate (ER) [Toprol 25 mg PO DAILY 07/28/22 07/28/22 Xl] OXcarbazepine [Trileptal] 100 mg PO BID 07/28/22 07/28/22 calcium polycarbophiL [Fibercon] 625 mg PO TID 07/28/22 07/28/22 Previous Rx's Medication Instructions Recorded Furosemide [Lasix] 20 mg PO DAILY #30 tab 08/01/22 Allergies Allergy/AdvReac Type Severity Reaction Status Date / Time No Known Allergies Allergy Verified 10/16/22 07:16 Review of Systems ROS Statement: Those systems with pertinent positive or pertinent negative responses have been documented in the HPI. ROS Other: All systems not noted in ROS Statement are negative. EKG Findings - EKG Comments: EKG Findings:: EKG performed at 17:13 sinus rhythm with rate of 65 MA 164 QRS 93 QT/QTC 394/406 - EKG Results: EKG: interpreted by NELSY Past Medical History Past Medical History: Hyperlipidemia, Hypertension Additional Past Medical History / Comment(s): Seizure disorder LAST SEIZURE 2013 History of Any Multi-Drug Resistant Organisms: None Reported Past Surgical History: Heart Catheterization, Hernia Repair, Orthopedic Surgery Additional Past Surgical History / Comment(s): left and right shoulder surgery, 3 Inguinal hernia repairs, colonoscopy. LEFT MIDDLE FINGER, RIGHT RING FINGER Past Anesthesia/Blood Transfusion Reactions: No Reported Reaction Past Psychological History: Depression Smoking Status: Former smoker Past Alcohol Use History: None Reported Past Drug Use History: None Reported - Past Family History Mother Family Medical History: No Reported History Sister(s) Family Medical History: Cancer Additional Family Medical History / Comment(s): Stomach General Exam Limitations: no limitations Course Vital Signs 10/16/22 07:09 Temperature 97.6 F Pulse Rate 75 Respiratory 18 Rate Blood Pressure 178/105 O2 Sat by Pulse 98 Oximetry Chest Pain MDM - MDM 77-year-old male presents emergency Department with chief complaint chest pain patient pain was improving but symptoms are returning. Initial enzymes are negative patient does have multiple risk factors, prior coronary stenosis on cardiac cath. Given patient's persistent symptoms patiently admitted for repeat troponin, cardiology evaluation. Critical Care Time Critical Care Time: Yes Total Critical Care Time: 35 Disposition Clinical Impression: Chest pain Disposition: ADMITTED IP TO THIS HOSP Referrals: [facility],Clinic [Primary Care Provider] - 1-2 days
[2022-10-16 07:47] LABS: ALT 19 U/L (4-49); AST 23 U/L (17-59); African American GFR (CKD) >90 (>60 ml/min/1.73 sqM); Albumin 3.7 g/dL (3.5-5.0); Alkaline Phosphatase 109 U/L (38-126); Anion Gap 7 mmol/L; Blood Urea Nitrogen 12 mg/dL (9-20); Carbon Dioxide 27 mmol/L (22-30); Chloride 105 mmol/L (98-107); Glucose 102 mg/dL (74-99); Magnesium 1.7 mg/dL (1.6-2.3); Non-African American GFR(CKD) 87 (>60 ml/min/1.73 sqM); Potassium 3.6 mmol/L (3.5-5.1); Sodium 139 mmol/L (137-145); Total Bilirubin 0.4 mg/dL (0.2-1.3); Total Protein 6.7 g/dL (6.3-8.2)
[2022-10-16 07:53] LABS: Partial Thromboplastin Time 22.4 sec (22.0-30.0); Prothrombin Time 10.6 sec (9.0-12.0)
[2022-10-16] MEDS ORDERED: NITROGLYCERIN SL TABS 0.4 MG TAB SUBLINGUAL STA (08:26)
[2022-10-16] MEDS ORDERED: HEPARIN SODIUM 1,000 UN/ML (10ML VL) IV PRN (08:28)
[2022-10-16] MEDS ORDERED: NITROGLYCERIN SL TABS 0.4 MG TAB SUBLINGUAL PRN (08:28)
[2022-10-16] MEDS ORDERED: HEPARIN SODIUM 1,000 UN/ML (10ML VL) IV ONE (08:28)
[2022-10-16] MEDS ORDERED: HEPARIN SOD,PORK IN 0.45% NACL 25,000 UNIT in 0.45% NACL 1 250ML.BAG IV SCH (08:30)
[2022-10-16] MEDS ORDERED: LORazepam 1 MG TAB PO PRN (08:33)
--- NOTE | 2022-10-16 10:52 | P.HPIM ---
History of Present Illness H&P Date: 10/16/22 77-year-old male with PMH of hypertension, dyslipidemia, seizure disorder, CAD, former smoker, depression and anxiety presents the ED for chest pain. Patient reports chest pain that started at 5 AM this morning as he was walking back from the bathroom. He reports the pain to be midsternal and slightly left-sided. Pain is sharp and stabbing in nature. Pain is 8 out of 10 in severity. Pain is not aggravated with deep inspiration or movement. Pain is nonradiating. He reported feeling cold and clammy but denied any nausea/vomiting or diaphoresis. These symptoms prompted him to come to the ED. He denies any headache, lower extremity edema, fever or chills, cough, shortness of breath, palpitations, changes in urination or bowel habits. No changes in appetite or weight. He denies any dizziness, numbness/weakness/tingling of extremities. In the ED, so vital signs are stable. CBC was unremarkable. D-dimer was 0.45. INR was 1. CMP showed glucose 102 and calcium of 8. Troponin was less than 0.012, EKG showing sinus rhythm with sinus arrhythmia, T-wave inversions. Chest x-ray is negative. Patient is admitted for chest pain, rule out acute coronary syndrome with cardiology consultation. Of note, patient recently had cardiac catheterization in July 2022 which showed 30% stenosis of the left circumflex. Pertinent positives and negatives as discussed in HPI, a complete review of systems was performed and all other systems are negative. General: non toxic, no distress, appears at stated age Derm: warm, dry Head: atraumatic, normocephalic, symmetric Eyes: EOMI, no lid lag, anicteric sclera Mouth: no lip lesion, mucus membranes moist Cardiovascular: S1S2 reg, no murmur, positive posterior tibial pulse bilateral, tenderness to palpation over the left costochondral region Lungs: CTA bilateral, no rhonchi, no rales , no accessory muscle use Abdominal: soft, nontender to palpation, no guarding, no appreciable organomegaly Ext: no gross muscle atrophy, no edema, no contractures Neuro: CN II-XI grossly intact, no focal neuro deficits Psych: Alert, oriented, appropriate affect #Chest pain, atypical, likely musculoskeletal #History of CAD Trend troponin/EKG. Discontinue heparin drip. Restart aspirin, Lipitor, metoprolol. Telemetry monitoring. Cardiology consultation. Chronic conditions: Hypertension, seizure disorder, depression and anxiety Restart metoprolol, lisinopril for history of hypertension, monitor vitals and adjust medication if necessary. Restart Trileptal for history of seizure disorder. Restart amitriptyline, Klonopin, Lexapro for history of depression and anxiety. DVT prophylaxis: Heparin Discussed with: Patient, ED physician Anticipated discharge: 1-[address]: Home A total of 30 minutes was spent on the care of this complex patient more than 50% of the time was spent in counseling and care coordination. Past Medical History Past Medical History: Hyperlipidemia, Hypertension Additional Past Medical History / Comment(s): Seizure disorder LAST SEIZURE 2013 History of Any Multi-Drug Resistant Organisms: None Reported Past Surgical History: Heart Catheterization, Hernia Repair, Orthopedic Surgery Additional Past Surgical History / Comment(s): left and right shoulder surgery, 3 Inguinal hernia repairs, colonoscopy. LEFT MIDDLE FINGER, RIGHT RING FINGER Past Anesthesia/Blood Transfusion Reactions: No Reported Reaction Past Psychological History: Depression Smoking Status: Former smoker Past Alcohol Use History: None Reported Past Drug Use History: None Reported - Past Family History Mother Family Medical History: No Reported History Sister(s) Family Medical History: Cancer Additional Family Medical History / Comment(s): Stomach Medications and Allergies Home Medications Medication Instructions Recorded Confirmed Type Atorvastatin [Lipitor] 80 mg PO DAILY 08/03/16 10/16/22 History Escitalopram [Lexapro] 20 mg PO DAILY 08/03/16 10/16/22 History Amitriptyline HCl [Elavil] 25 mg PO HS 09/07/17 10/16/22 History Omeprazole [PriLOSEC] 20 mg PO DAILY 09/07/17 10/16/22 History clonazePAM [KlonoPIN] 2 mg PO HS 09/07/17 10/16/22 History lisinopriL [Prinivil] 10 mg PO DAILY 09/07/17 10/16/22 History Melatonin [Melatonin ER] 20 mg PO HS 12/02/19 10/16/22 History Cyanocobalamin (Vitamin B-12) 2,500 mcg PO DAILY 07/28/22 10/16/22 History [Vitamin B-12] Diphenox-Atrop 2.5-0.025 mg 1 tab PO BID 07/28/22 10/16/22 History [Lomotil] Ibguard Supplement 1 tab PO BID 07/28/22 10/16/22 History Metoprolol Succinate (ER) [Toprol 25 mg PO DAILY 07/28/22 10/16/22 History Xl] calcium polycarbophiL [Fibercon] 625 mg PO TID 07/28/22 10/16/22 History OXcarbazepine [Trileptal] 300 mg PO BID 10/16/22 10/16/22 History Allergies Allergy/AdvReac Type Severity Reaction Status Date / Time No Known Allergies Allergy Verified 10/16/22 09:08 Physical Exam Vitals: Vital Signs Temp Pulse Resp BP Pulse Ox 10/16/22 10:00 67 22 136/93 95 10/16/22 09:30 85 20 124/78 95 10/16/22 09:00 82 21 142/96 97 10/16/22 08:30 77 20 142/82 89 L 10/16/22 08:27 77 142/82 98 10/16/22 08:00 73 18 149/80 97 10/16/22 07:13 178/105 92 L 10/16/22 07:09 97.6 F 75 18 178/105 98 Intake and Output 10/15/22 10/16/22 10/16/22 22:59 06:59 14:59 Other: Weight 78.018 kg Results CBC & Chem 7: 10/16/22 07:29 10/16/22 07:29 Labs: Abnormal Lab Results - Last 24 Hours (Table) 10/16/22 10/16/22 Range/Units 07:29 07:29 Eosinophils # 0.9 H (0-0.7) k/uL Glucose 102 H (74-99) mg/dL Calcium 8.0 L (8.4-10.2) mg/dL
[2022-10-16] MEDS ORDERED: AMITRIPTYLINE HCL 25 MG TAB PO SCH (21:00)
[2022-10-16] MEDS ORDERED: clonazePAM 1 MG TAB PO SCH (21:00)
[2022-10-16] MEDS ORDERED: MELATONIN 5 MG TABLET PO SCH (21:00)
[2022-10-16] MEDS ORDERED: [UNRECOGNIZED DRUG - OTHER] PO SCH (21:00)
[2022-10-16] MEDS: DIPHENOX-ATROP 2.5-0.025 MG 1 EACH TAB PO SCH (21:57)
[2022-10-16] MEDS: OXcarbazepine 300 MG TAB PO SCH (21:58)
[2022-10-16] MEDS: HEPARIN SODIUM,PORCINE/PF 5,000 UNIT/0.5 ML SYRINGE SQ SCH (21:59)
[2022-10-17] MEDS ORDERED: PANTOPRAZOLE 40 MG TABLET PO SCH (07:30)
[2022-10-17 08:17] VITALS: TEMP 97.8
[2022-10-17] MEDS: DIPHENOX-ATROP 2.5-0.025 MG 1 EACH TAB PO SCH (08:41)
[2022-10-17] MEDS: HEPARIN SODIUM,PORCINE/PF 5,000 UNIT/0.5 ML SYRINGE SQ SCH (08:42)
[2022-10-17] MEDS ORDERED: CYANOCOBALAMIN 500 MCG TAB PO SCH (09:00)
[2022-10-17] MEDS ORDERED: ESCITALOPRAM 20 MG TAB PO SCH (09:00)
[2022-10-17] MEDS ORDERED: METOPROLOL SUCCINATE (ER) 25 MG TAB.ER.24H PO SCH (09:00)
[2022-10-17] MEDS ORDERED: ASPIRIN 325 MG TAB PO SCH (09:00)
[2022-10-17] MEDS ORDERED: ATORVASTATIN 80 MG TAB PO SCH (09:00)
[2022-10-17] MEDS ORDERED: lisinopriL 10 MG TAB PO SCH (09:00)
[2022-10-17 09:11] LABS: Platelet Count 253 X 10*3/uL (140-440)
[2022-10-17] MEDS: OXcarbazepine 300 MG TAB PO SCH (09:11)
[2022-10-17 09:36] LABS: Chol/HDL Ratio 3.44 Ratio; LDL Cholesterol,Calculated 92.3 mg/dL (0.0-131.0)
--- NOTE | 2022-10-17 10:38 | P.DS ---
Providers Date of admission: 10/16/22 08:36 Expected date of discharge: 10/17/22 Attending physician: Miguelina Johnson MD Consults: 10/16/22 08:28 Consult Physician Urgent Consulting Provider: Martínez Zapata Consult Reason/Comments: chest pain Do you want consulting provider notified?: Yes Primary care physician: [facility] Course: 77-year-old male with PMH of hypertension, dyslipidemia, seizure disorder, CAD, former smoker, depression and anxiety presents the ED for chest pain. Patient reports chest pain that started at 5 AM this morning as he was walking back from the bathroom. He reports the pain to be midsternal and slightly left-sided. Pain is sharp and stabbing in nature. Pain is 8 out of 10 in severity. Pain is not aggravated with deep inspiration or movement. Pain is nonradiating. He reported feeling cold and clammy but denied any nausea/vomiting or diaphoresis. These symptoms prompted him to come to the ED. He denies any headache, lower extremity edema, fever or chills, cough, shortness of breath, palpitations, changes in urination or bowel habits. No changes in appetite or weight. He denies any dizziness, numbness/weakness/tingling of extremities. In the ED, so vital signs are stable. CBC was unremarkable. D-dimer was 0.45. INR was 1. CMP showed glucose 102 and calcium of 8. Troponin was less than 0.012, EKG mikel wing sinus rhythm with sinus arrhythmia, T-wave inversions. Chest x-ray is negative. Patient is admitted for chest pain, rule out acute coronary syndrome with cardiology consultation. Of note, patient recently had cardiac catheterization in July 2022 which showed 30% stenosis of the left circumflex. Troponins were trended and ACS was ruled out. Cardiology was consulted and recommended EKG and event monitor. His chest pain was thought to be musculoskeletal in nature. Patient was seen and examined this morning. He reports considerable improvement in his right-sided chest pain. He denies any shortness of breath or palpitations. No nausea or vomiting. No fever or chills. Pertinent studies include chest x-ray EKG General: non toxic, no distress, appears at stated age Derm: warm, dry Head: atraumatic, normocephalic, symmetric Eyes: EOMI, no lid lag, anicteric sclera Mouth: no lip lesion, mucus membranes moist Cardiovascular: S1S2 reg, no murmur, positive posterior tibial pulse bilateral, tenderness to palpation over the left costochondral region Lungs: CTA bilateral, no rhonchi, no rales , no accessory muscle use Ext: no gross muscle atrophy, no edema, no contractures Neuro: no focal neuro deficits Psych: Alert, oriented, appropriate affect Discharge diagnosis: #Chest pain, atypical, likely musculoskeletal #History of CAD Chronic conditions: Hypertension, seizure disorder, depression and anxiety Patient will be discharged with the following instructions: Diet: Cardiac FU PCP within 1-2 days of DC. FU Cardiology within 1 week of DC to discuss results of event monitor. Take all medications as advised. Come back to the ED for worsening chest pain, shortness of breath, palpitations, lightheadedness. Patient Condition at Discharge: Stable Plan - Discharge Summary New Discharge Prescriptions: New Aspirin 81 mg PO DAILY #30 tab Continue Atorvastatin [Lipitor] 80 mg PO DAILY Escitalopram [Lexapro] 20 mg PO DAILY Amitriptyline HCl [Elavil] 25 mg PO HS Omeprazole [PriLOSEC] 20 mg PO DAILY lisinopriL [Prinivil] 10 mg PO DAILY clonazePAM [KlonoPIN] 2 mg PO HS Melatonin [Melatonin ER] 20 mg PO HS calcium polycarbophiL [Fibercon] 625 mg PO TID Ibguard Supplement 1 tab PO BID OXcarbazepine [Trileptal] 300 mg PO BID Cyanocobalamin (Vitamin B-12) [Vitamin B-12] 2,500 mcg PO DAILY Metoprolol Succinate (ER) [Toprol XL] 25 mg PO DAILY Diphenox-Atrop 2.5-0.025 mg [Lomotil] 1 tab PO BID Discharge Medication List Atorvastatin [Lipitor] 80 mg PO DAILY 08/03/16 [History] Escitalopram [Lexapro] 20 mg PO DAILY 08/03/16 [History] Amitriptyline HCl [Elavil] 25 mg PO HS 09/07/17 [History] Omeprazole [PriLOSEC] 20 mg PO DAILY 09/07/17 [History] clonazePAM [KlonoPIN] 2 mg PO HS 09/07/17 [History] lisinopriL [Prinivil] 10 mg PO DAILY 09/07/17 [History] Melatonin [Melatonin ER] 20 mg PO HS 12/02/19 [History] Cyanocobalamin (Vitamin B-12) [Vitamin B-12] 2,500 mcg PO DAILY 07/28/22 [History] Diphenox-Atrop 2.5-0.025 mg [Lomotil] 1 tab PO BID 07/28/22 [History] Ibguard Supplement 1 tab PO BID 07/28/22 [History] Metoprolol Succinate (ER) [Toprol XL] 25 mg PO DAILY 07/28/22 [History] calcium polycarbophiL [Fibercon] 625 mg PO TID 07/28/22 [History] OXcarbazepine [Trileptal] 300 mg PO BID 10/16/22 [History] Aspirin 81 mg PO DAILY #30 tab 10/17/22 [Rx] Follow up Appointment(s)/Referral(s): Martínez Zapata DO [Family Provider] - 1 Week [facility] [Primary Care Provider] - 1-2 days Activity/Diet/Wound Care/Special Instructions: Diet: Cardiac FU PCP within 1-2 days of DC. FU Cardiology within 1 week of DC. Take all medications as advised. Come back to the ED for worsening chest pain, shortness of breath, palpitations, lightheadedness. Discharge Disposition: HOME SELF-CARE
--- NOTE | 2022-10-17 10:46 | P.CRDCN ---
History of Present Illness Consult date: 10/17/22 Consult reason: chest pain History of present illness: HISTORY OF PRESENT ILLNESS This is with past medical history of hypertension, hyperlipidemia, family history of coronary artery disease. Patient was seen in the office in July which time he was having chest pain and exertional dyspnea and underwent a cardiac catheterization 08/01/2022 which revealed normal coronary arteries other than an ostial circumflex 30% stenosis. Patient states that he was having chest pain but describes it as a pounding or throbbing along with shortness of breath. He denies having any lightheadedness or dizziness. EKG is sinus rhythm at 60 bpm CBC and CMP essentially normal. Troponin negative on 3 draws. Triglycerides 120, cholesterol 164, LDL 92, HDL 47. TSH 3.640. REVIEW OF SYSTEMS At the time of my evaluation: Constitutional: No fever, no chills. No weakness, fatigue or lethargy. EENT: No headache. No dizziness. Lungs: No shortness of breath, cough, no sputum production. No wheezing. Cardiovascular: No chest pain, no lower extremity edema. No palpitations. No paroxysmal nocturnal dyspnea. No orthopnea. No lightheadedness or dizziness. No syncopal episodes. Abdominal: No abdominal pain. No nausea, vomiting. No diarrhea. No constipation. No bloody or tarry stools.. No loss of appetite. Genitourinary: No dysuria.. No urinary retention. Musculoskeletal: No myalgias. No muscle weakness, no gait dysfunction, no frequent falls. No back pain. No neck pain. Integumentary: No wounds, no lesions. No rash or pruritus. No unusual bruising. Neurologic: No aphasia. No facial droop. No change in mentation. No head injury. No headache. No paralysis. No paresthesia. Psychiatric: No depression. No anxiety. Endocrine: No abnormal blood sugars. PHYSICAL EXAMINATION Gen: This is a 77-year-old male. He is resting in bed and appears to be comfortable. VS: Reviewed HEENT: Head is atraumatic, normocephalic. Pupils equal, round. Sclerae is anicteric. NECK: Supple. No JVD. No lymphadenopathy. No thyromegaly. LUNGS: Clear to auscultation. No wheezes or rhonchi. No intercostal retractions. HEART: Regular S1 and S2 heard. No rub, murmur or gallop. ABDOMEN: Soft. Bowel sounds are present. No masses. No tenderness. EXTREMITIES: No pedal edema. No calf tenderness. NEUROLOGICAL: Patient is awake, alert and oriented x3. Cranial nerves 2 through 12 are grossly intact. ASSESSMENT Chest pain with normal troponins and normal EKG, acute cardiac syndrome ruled out Sensation of pounding or throbbing, rule out arrhythmia Hypertension Hyperlipidemia PLAN 30 day event monitor Patient is cleared for discharge home with plan to follow-up with Dr. Zapata in 1 week Thank you kindly for this consultation. Nurse practitioner note has been reviewed, I agree with documented findings and plan of care. Patient was seen and examined. Past Medical History Past Medical History: Hyperlipidemia, Hypertension Additional Past Medical History / Comment(s): Seizure disorder LAST SEIZURE 2013 History of Any Multi-Drug Resistant Organisms: None Reported Past Surgical History: Heart Catheterization, Hernia Repair, Orthopedic Surgery Additional Past Surgical History / Comment(s): left and right shoulder surgery, 3 Inguinal hernia repairs, colonoscopy. LEFT MIDDLE FINGER, RIGHT RING FINGER Past Anesthesia/Blood Transfusion Reactions: No Reported Reaction Past Psychological History: Depression Smoking Status: Former smoker Past Alcohol Use History: None Reported Additional Past Alcohol Use History / Comment(s): STARTED SMOKING AT AGE 15 QUIT 1977 SMOKED 1PPD Past Drug Use History: None Reported - Past Family History Mother Family Medical History: No Reported History Sister(s) Family Medical History: Cancer Additional Family Medical History / Comment(s): Stomach Medications and Allergies Home Medications Medication Instructions Recorded Confirmed Type Atorvastatin [Lipitor] 80 mg PO DAILY 08/03/16 10/16/22 History Escitalopram [Lexapro] 20 mg PO DAILY 08/03/16 10/16/22 History Amitriptyline HCl [Elavil] 25 mg PO HS 09/07/17 10/16/22 History Omeprazole [PriLOSEC] 20 mg PO DAILY 09/07/17 10/16/22 History clonazePAM [KlonoPIN] 2 mg PO HS 09/07/17 10/16/22 History lisinopriL [Prinivil] 10 mg PO DAILY 09/07/17 10/16/22 History Melatonin [Melatonin ER] 20 mg PO HS 12/02/19 10/16/22 History Cyanocobalamin (Vitamin B-12) 2,500 mcg PO DAILY 07/28/22 10/16/22 History [Vitamin B-12] Diphenox-Atrop 2.5-0.025 mg 1 tab PO BID 07/28/22 10/16/22 History [Lomotil] Ibguard Supplement 1 tab PO BID 07/28/22 10/16/22 History Metoprolol Succinate (ER) [Toprol 25 mg PO DAILY 07/28/22 10/16/22 History XL] calcium polycarbophiL [Fibercon] 625 mg PO TID 07/28/22 10/16/22 History OXcarbazepine [Trileptal] 300 mg PO BID 10/16/22 10/16/22 History Aspirin 81 mg PO DAILY #30 tab 10/17/22 Rx Allergies Allergy/AdvReac Type Severity Reaction Status Date / Time No Known Allergies Allergy Verified 10/16/22 09:08 Physical Exam Vitals: Vital Signs Temp Pulse Pulse Resp BP BP Pulse Ox 10/17/22 03:22 98.1 F 59 L 17 97/62 92 L 10/16/22 21:19 98.0 F 66 19 161/89 94 L 10/16/22 19:33 65 19 148/85 95 10/16/22 15:00 16 131/90 10/16/22 14:00 18 10/16/22 10:30 70 18 138/89 95 10/16/22 10:00 67 22 136/93 95 10/16/22 09:30 85 20 124/78 95 10/16/22 09:00 82 21 142/96 97 10/16/22 08:30 77 20 142/82 89 L 10/16/22 08:27 77 142/82 98 Intake and Output 10/16/22 10/17/22 10/17/22 22:59 06:59 14:59 Other: Voiding Method Toilet # Voids 1 2 Weight 78.018 kg Results 10/17/22 05:52 10/16/22 07:29 Cardiac Enzymes 10/16/22 10/16/22 Range/Units 11:29 14:25 Troponin I <0.012 <0.012 (0.000-0.034) ng/mL Coagulation 10/16/22 Range/Units 14:25 APTT 58.0 H (22.0-30.0) sec Current Medications Generic Name Dose Route Start Last Admin Trade Name Freq PRN Reason Stop Dose Admin Amitriptyline HCl 25 mg 10/16/22 21:00 10/16/22 21:57 Amitriptyline Hcl 25 Mg Tab PO 25 mg HS [facility] Administration Aspirin 325 mg 10/17/22 09:00 Aspirin 325 Mg Tab PO DAILY [facility] Atorvastatin Calcium 80 mg 10/17/22 09:00 Atorvastatin 80 Mg Tab PO DAILY [facility] Calcium Polycarbophil 625 mg 10/16/22 16:00 10/16/22 21:57 Calcium Polycarbophil 625 Mg Tab PO 625 mg TID [facility] Administration Clonazepam 2 mg 10/16/22 21:00 10/16/22 21:57 Clonazepam 1 Mg Tab PO 2 mg HS [facility] Administration Cyanocobalamin 2,500 mcg 10/17/22 09:00 Cyanocobalamin 500 Mcg Tab PO DAILY [facility] Diphenoxylate HCl/Atropine 1 each 10/16/22 21:00 10/16/22 21:57 Diphenox-Atrop 2.5-0.025 Mg 1 Each Tab PO 1 each BID [facility] Administration Escitalopram Oxalate 20 mg 10/17/22 09:00 Escitalopram 20 Mg Tab PO DAILY [facility] Heparin Sodium (Porcine) 5,000 unit 10/16/22 21:00 10/16/22 21:59 Heparin Sodium,Porcine/Pf 5,000 Unit/0.5 Ml Syringe SQ Not Given Q12HR [facility] Lisinopril 10 mg 10/17/22 09:00 Lisinopril 10 Mg Tab PO DAILY [facility] Lorazepam 1 mg 10/16/22 08:33 10/16/22 08:48 Lorazepam 1 Mg Tab PO 1 mg Q8HR PRN Administration Anxiety Melatonin 10 mg 10/16/22 21:00 10/16/22 21:58 Melatonin 5 Mg Tablet PO 10 mg HS [facility] Administration Metoprolol Succinate 25 mg 10/17/22 09:00 Metoprolol Succinate (Er) 25 Mg Tab.Er.24h PO DAILY [facility] Nitroglycerin 0.4 mg 10/16/22 08:28 Nitroglycerin Sl Tabs 0.4 Mg Tab SUBLINGUAL Q5M PRN Chest Pain Oxcarbazepine 300 mg 10/16/22 21:00 10/16/22 21:58 Oxcarbazepine 300 Mg Tab PO 300 mg BID [facility] Administration Pantoprazole Sodium 40 mg 10/17/22 07:30 10/17/22 05:59 Pantoprazole 40 Mg Tablet PO 40 mg [id number] [facility] Administration Intake and Output 10/16/22 10/17/22 10/17/22 22:59 06:59 14:59 Other: Voiding Method Toilet # Voids 1 2 Weight 78.018 kg 10/16/22 07:29 10/16/22 07:29
[2022-10-17 13:07] VITALS: BP 103/61; PULSE 59; RESP 16
== END 2022-10-17 14:07 | disposition home or self-care (01) ==
LOC: EC 07:06 → 6NMEDSUR 08:36
PROVIDERS: ADMIT Family Medicine; ATTEND Family Medicine
DX: R07.89 Other chest pain (principal); I10 Essential (primary) hypertension; E78.5 Hyperlipidemia, unspecified; I25.10 Atherosclerotic heart disease of native coronary artery without angina pectoris; F41.9 Anxiety disorder, unspecified; F32.A Depression, unspecified; G40.909 Epilepsy, unspecified, not intractable, without status epilepticus; Z79.899 Other long term (current) drug therapy; Z79.82 Long term (current) use of aspirin; Z87.891 Personal history of nicotine dependence; Z80.0 Family history of malignant neoplasm of digestive organs
CPT/HCPCS: 96372; 96374; 99285; 36415; 93005; 93270; 85379; 80061; 80053; 84443; 83735; 84484; 85025; 85049; 85610; 85730; 71046; G0378 ×2; J1644 ×3

== ENCOUNTER 2024-02-01 09:39 | Day surgery (SDC) | payer MEDICARE, OTHER ==
--- NOTE | 2024-01-31 08:31 | P.HPOR ---
History of Present Illness H&P Date: 01/31/24 Chief Complaint: Right middle finger pain and locking The patient is a 78-year-old right-hand dominant retired gentleman who presents with right middle finger pain and locking for the past 2 months. He notes he's having a difficult time extending his finger fully at times. He tried medications without much relief. He has a history of previous trigger finger releases. Review of Systems As per HPI Past Medical History Past Medical History: GERD/Reflux, Hyperlipidemia, Hypertension, Seizure Disorder, Sleep Apnea/CPAP/BIPAP Additional Past Medical History / Comment(s): Seizure disorder LAST SEIZURE 2013, wears cpap. History of Any Multi-Drug Resistant Organisms: None Reported Past Surgical History: Heart Catheterization, Hernia Repair, Orthopedic Surgery Additional Past Surgical History / Comment(s): left and right shoulder surgery, 3 Inguinal hernia repairs, colonoscopy. LEFT MIDDLE FINGER, RIGHT RING FINGER Past Anesthesia/Blood Transfusion Reactions: No Reported Reaction Smoking Status: Former smoker - Past Family History Mother Family Medical History: No Reported History Sister(s) Family Medical History: Cancer Additional Family Medical History / Comment(s): Stomach Medications and Allergies Home Medications Medication Instructions Recorded Confirmed Type Atorvastatin [Lipitor] 80 mg PO DAILY 08/03/16 01/29/24 History Escitalopram [Lexapro] 20 mg PO DAILY 08/03/16 01/29/24 History Amitriptyline HCl [Elavil] 25 mg PO HS 09/07/17 01/29/24 History Omeprazole [PriLOSEC] 20 mg PO DAILY 09/07/17 01/29/24 History lisinopriL [Prinivil] 10 mg PO DAILY 09/07/17 01/29/24 History Melatonin [Melatonin ER] 10 mg PO HS 12/02/19 01/29/24 History Cyanocobalamin (Vitamin B-12) 2,500 mcg PO DAILY 07/28/22 01/29/24 History [Vitamin B-12] Diphenox-Atrop 2.5-0.025 mg 1 tab PO BID 07/28/22 01/29/24 History [Lomotil] OXcarbazepine [Trileptal] 300 mg PO BID 10/16/22 01/29/24 History Aspirin 81 mg PO DAILY #30 tab 10/17/22 01/29/24 Rx Allergies Allergy/AdvReac Type Severity Reaction Status Date / Time No Known Allergies Allergy Verified 01/29/24 14:53 Physical Examination - Wrist & Hand right Location of pain: long finger (Tender over the A1 artem right third digit with palpable triggering) Long finger pain modifiers: with motion, with activity Results Patient is a well-developed well-nourished male proximal a 5 foot 6, 165 pounds of mesomorphic habitus. HEENT exam is nonfocal, neck is supple. He is nontender about the right shoulder, elbow and wrist. On examination of his right hand he is tender over the A1 artem of the third digit. He has a palpable nodule. He has palpable triggering. His distal neurovascular appears intact in the right upper extremity. Assessment and Plan Assessment: Right third digit trigger fingersymptomatic Plan: I talked to the patient length regarding his condition along with treatment options. At this point he is quite symptomatic having pain and mechanical symptoms. After a thorough discussion he opts to proceed with surgery. We'll plan to proceed with right third digit trigger finger release/A1 artem release. We will likely perform that as an outpatient procedure utilizing IV sedation and local anesthetic. Risks and benefits were discussed at length in layman's terms.
[~2024-02-01 09:39] MED LIST changes: -BUPIVACAINE (PF) 0.25% 30 ML VIAL SQ ONE; -DEXAMETHASONE SOD PHOSPHATE 10 MG/ML 1 ML VIAL IV ONE; -LACTATED RINGERS 1,000 ML IV SCH; +MIDAZOLAM 2 MG/2 ML VIAL IV PRN; -MIDAZOLAM 2 MG/2 ML VIAL ONE; -ONDANSETRON 4 MG/2 ML VIAL IVP ONE; -PROPOFOL 10 MG/ML 20 ML VIAL IV ONE; -fentaNYL (PF) 50 MCG/ML 2 ML AMP ONE
[2024-02-01] MEDS: LACTATED RINGERS 1,000 ML IV SCH (09:59)
[2024-02-01 10:08] VITALS: RESP 18; TEMP 97.2
[2024-02-01] MEDS: DEXAMETHASONE SOD PHOSPHATE 4 MG/ML 1 ML VIAL IV ONE (10:22)
[2024-02-01] MEDS: ONDANSETRON 4 MG/2 ML VIAL IVP ONE (10:22)
[2024-02-01] MEDS ORDERED: PROPOFOL 10 MG/ML 20 ML VIAL IV ONE (11:30)
[2024-02-01] MEDS ORDERED: LIDOCAINE 1% INJ 10MG/ML (20 ML MDV) ONE (11:30)
[2024-02-01] MEDS ORDERED: MIDAZOLAM 2 MG/2 ML VIAL ONE (11:30)
[2024-02-01] MEDS ORDERED: fentaNYL (PF) 50 MCG/ML 2 ML AMP ONE (11:30)
[2024-02-01] MEDS: BUPIVACAINE (PF) 0.25% 30 ML VIAL SQ ONE (11:32)
--- NOTE | 2024-02-01 12:01 | P.OP ---
Date of Procedure: 02/01/24 Preoperative Diagnosis: Right middle trigger fingersymptomatic Postoperative Diagnosis: Same Procedure(s) Performed: Right middle trigger finger release/A1 artem release Anesthesia: MAC, local Surgeon: Willie Smith Estimated Blood Loss (ml): 1 Pathology: none sent Condition: stable Disposition: PACU Indications for Procedure: The patient is a 78-year-old male who presents with progressive right middle finger pain and locking. A discussion of the risks and benefits of operative intervention versus conservative measures was made with patient. He opted to proceed with surgery. He has a history of multiple trigger finger releases. Risks of surgery to include infection, neurovascular injury, recurrence of symptoms and possible need for self procedures was discussed. Informed consent was obtained. Operative Findings: As below Description of Procedure: The patient was brought to the operating room and after induction of IV sedation right upper extremity was prepped and draped in normal fashion. The tourniquet was inflated to 270 mmHg. The proposed incision site was outlined with a skin marker just proximal to the distal palmar crease measuring approximate 1 cm in line with the right third digit. 8 mL of quarter percent plain Marcaine was injected into the proposed incision site. The skin was incised sharply. Subcutaneous tissues were divided bluntly. The neurovascular bundles were gently retracted. The A1 artem was then identified and transected under direct visualization proximally and distally. There was nodularity of the flexor tendon. I felt I had adequate release at this point. The wound was irrigated normal saline. The skin was reapproximated with simple 4-0 nylon sutures. A sterile dressing was applied. The tourniquet was deflated with less than 15 minutes total tourniquet time. Blood loss was estimated at 1 mL. No complications were incurred. Sponge and needle counts were correct at the end of the case.
[2024-02-01 12:31] VITALS: BP 110/58; PULSE 78
== END 2024-02-01 12:53 | disposition home or self-care (01) ==
LOC: OR 09:39
PROVIDERS: ATTEND Orthopaedic Surgery
DX: M65.331 Trigger finger, right middle finger (principal); E78.5 Hyperlipidemia, unspecified; G40.909 Epilepsy, unspecified, not intractable, without status epilepticus; I10 Essential (primary) hypertension; G47.30 Sleep apnea, unspecified; K21.9 Gastro-esophageal reflux disease without esophagitis; Z87.891 Personal history of nicotine dependence; Z79.899 Other long term (current) drug therapy; Z98.890 Other specified postprocedural states
CPT/HCPCS: 26055; J2250; J1100; J0690; J2405; J2001; J3010; J2704; J0665

== ENCOUNTER → 2024-08-13 | Outpatient (CLI) | payer MEDICARE ==
--- NOTE | 2024-08-13 16:33 | US ---
EXAMINATION TYPE: US kidneys/renal and bladder DATE OF EXAM: 08/13/2024 COMPARISON: NONE CLINICAL INDICATION: Male, 78 years old with history of R10.9 UNSPECIFIED ABDOMINAL PAIN; Right flank pain. EXAM MEASUREMENTS: Right Kidney: 10.1 x 4.4 x 5.4 cm Left Kidney: 10.2 x 3.9 x 5.4 cm Right Kidney: No hydronephrosis or masses seen Left Kidney: No hydronephrosis or masses seen Bladder: Mildly distended, anechoic Bilateral Jets not seen There is no evidence for hydronephrosis at this point in time. No nephrolithiasis is seen. No selam s are identified. The urinary bladder is anechoic. Bilateral ureteral jets are seen. IMPRESSION: No evidence for obstructive uropathy. [facility], Workstation: [id number], 08/13/2024 4:30 PM
== END | disposition home or self-care (01) ==
LOC: RADUSWWP 14:14
PROVIDERS: ATTEND Internal Medicine Gastroenterology
DX: R10.9 Unspecified abdominal pain (principal)
CPT/HCPCS: 76770

== ENCOUNTER 2024-09-17 11:11 | Day surgery (SDC) | payer MEDICARE ==
[2024-09-16 09:54] VITALS: BMI 27.4
[2024-09-17 11:55] VITALS: RESP 16; TEMP 97.3
[2024-09-17] MEDS: IV FLUID CONTINUATION 1,000 ML IV ONE (12:12)
[2024-09-17] MEDS: LACTATED RINGERS 1,000 ML IV SCH (12:12)
[2024-09-17] MEDS ORDERED: LIDOCAINE 1% INJ 10MG/ML (20 ML MDV) ONE (12:50)
[2024-09-17] MEDS ORDERED: PROPOFOL 10 MG/ML 20 ML VIAL IV ONE (12:50)
--- NOTE | 2024-09-17 13:09 | P.PCN ---
Date of Procedure: 09/17/24 Procedure(s) Performed: BRIEF HISTORY: Patient is a 79-year-old pleasant white male scheduled for an elective colonoscopy as a part of evaluation change in bowel habits and chronic diarrhea for the 6 months duration. He is having 4-6 loose watery bowel movements daily. No blood or mucus in the stool. PROCEDURE PERFORMED: Colonoscopy with random biopsies. PREOPERATIVE DIAGNOSIS: Change in bowel habits/chronic diarrhea. IV sedation per Anesthesia. PROCEDURE: After informed consent was obtained, the patient, was brought into the endoscopy unit. IV sedation was administered by Anesthesia under continuous monitoring. Digital rectal examination was normal. Initially the Olympus CF-160 flexible video colonoscope was then inserted in the rectum, gradually advanced into the cecum without any difficulty. Careful examination was performed as the scope was gradually being withdrawn. Ileocecal valve and the appendiceal orifice were visualized and appeared normal. Prep was excellent. Mucosa of the cecum, ascending colon, transverse colon, descending colon, sigmoid colon, and rectum appeared normal. Scattered sigmoid diverticulosis. Random biopsies were done from the ascending and descending colon to rule out microscopic/collagenous colitis. Retroflexion was performed in the rectum and no lesions were seen. The patient tolerated the procedure well. IMPRESSION: Normal-appearing colon from rectum to cecum with no evidence of colorectal neoplasia Sigmoid diverticulosis. RECOMMENDATIONS: Findings of this examination were discussed with the patient as well as his family. He was advised to follow-up with the biopsy results. He will be seen in the office in 2 to 3 weeks..
[2024-09-17 13:39] VITALS: BP 122/45; PULSE 63
== END 2024-09-17 14:01 | disposition home or self-care (01) ==
LOC: ORWHC2ENDO 11:11
PROVIDERS: ATTEND Internal Medicine Gastroenterology
DX: K52.9 Noninfective gastroenteritis and colitis, unspecified (principal); K57.30 Diverticulosis of large intestine without perforation or abscess without bleeding; I10 Essential (primary) hypertension; E78.5 Hyperlipidemia, unspecified; G47.33 Obstructive sleep apnea (adult) (pediatric); K21.9 Gastro-esophageal reflux disease without esophagitis; G40.509 Epileptic seizures related to external causes, not intractable, without status epilepticus; Z79.02 Long term (current) use of antithrombotics/antiplatelets; Z79.82 Long term (current) use of aspirin; Z79.899 Other long term (current) drug therapy
CPT/HCPCS: 45380; 88305